=== PATIENT | female | born 1960 | race Caucasian/White ===

== ENCOUNTER 2017-09-24 11:09 | Outpatient (CLI) | payer OTHER ==
[2017-09-24 11:54] LABS: #Basophils 0.1 thou/uL (0.0-0.2); #Eosinphils 0.1 thou/uL (0.0-0.7); #Lymphocytes 2.9 thou/uL (1.20-3.40); #Monocytes 0.6 thou/uL (0.11-0.59); #Neutrophils 3.1 thou/uL (1.40-6.50); %Basophils 1.2 % (0.0-1.0); %Eosinophils 1.3 % (0.0-10.0); %Lymphocytes 42.3 % (21.0-51.0); %Monocytes 9.4 % (0.0-10.0); %Neutrophils 45.7 % (42.0-75.0); Hemoglobin 12.3 g/dL (12.0-16.0); Mean Corpuscular HGB CONC 32.3 g/dL (32.0-36.0); Mean Corpuscular Hemoglobin 31.6 pg (27.0-31.0); Mean Corpuscular Volume 97.9 fl (81.0-99.0); Platelet Count 277 thou/uL (130-400); RBC Distribution Width 12.5 % (11.5-14.5); Red Blood Cell (RBC) Count 3.89 mill/uL (4.20-5.40); White Blood Cell (WBC) Count 6.8 thou/uL (4.8-10.8)
[2017-09-24 12:16] LABS: ALT (SGPT) 14 U/L (8-55); AST (SGOT) 16 U/L (5-34); Albumin 4.3 g/dL (3.5-5.0); Alkaline Phosphatase 60 U/L (40-150); Anion Gap 14 mmol/L (10-20); BUN (Urea Nitrogen) 19 mg/dL (9.8-20.1); Bilirubin, Total 0.3 mg/dL (0.2-1.2); Calc. Creatinine Clearance 0 mL/min (70-130); Calcium 9.8 mg/dL (7.8-10.44); Carbon Dioxide 28 mmol/L (22-29); Cardiac Risk 6.4 (Less than 4.5); Chloride 104 mmol/L (98-107); Cholesterol 281 mg/dl (< 200 Desired); Estimated GFR-MDRD 80; Globulin 2.7 g/dL (2.4-3.5); Glucose 69 mg/dL (70-105); HDL Cholesterol 44 mg/dL (>60 Neg Risk); LDL Cholesterol, Calculated 198 mg/dL; Potassium 4.3 mmol/L (3.5-5.1); Sodium 142 mmol/L (136-145); Triglycerides 197 mg/dL (Less than 150)
--- NOTE | 2017-09-24 13:39 | RAD ---
PA AND LATERAL OF THE CHEST: Indication: Cough, smoking. Comparison: None. IMPRESSION: No focal consolidation or pleural effusion is evident. Cardiomediastinal silhouette is normal. No acu te osseous abnormality is evident. POS: [facility]
[2017-09-24 17:14] LABS: CRP (Inflammatory) Less than 0.50 mg/dL (= or < 0.5)
== END 2017-09-24 11:10 | disposition home or self-care (01) ==
LOC: MADLABBHPM 11:09
PROVIDERS: ATTEND Family Medicine
DX: E03.9 Hypothyroidism, unspecified (principal)
CPT/HCPCS: 36415; 71046; 80053; 80061; 84443; 85025; 85652; 86140

== ENCOUNTER 2017-09-29 10:24 | Outpatient (CLI) | payer OTHER | END 2017-09-29 10:25 | disposition home or self-care (01) | LOC: MADLABBHPM 10:24 | PROVIDERS: ATTEND Family Medicine | DX: E03.9 Hypothyroidism, unspecified (principal); R53.83 Other fatigue; F17.200 Nicotine dependence, unspecified, uncomplicated | CPT/HCPCS: 82274 ==